=== PATIENT | female | born 1995 | race Caucasian/White ===

== ENCOUNTER 2024-07-20 16:13 | Emergency (ER) | payer OTHER ==
[~2024-07-20] VITALS: Ht 165.1 cm; Wt 66.7 kg
[2024-07-20 19:44] LABS: BILIRUBIN, URINE NEGATIVE (negative); BLOOD/HGB, URINE NEGATIVE (Negative); KETONE, URINE NEGATIVE (Negative); LEUK ESTERASE, URINE NEGATIVE (negative); NITRITE, URINE NEGATIVE (negative); PH, URINE 5.5 (5-7)
[2024-07-20] MEDS ORDERED: MAGNESIUM CITRATE 300 ML BTL PO ONE (21:00)
[2024-07-20 21:31] VITALS: BP 112/66
== END 2024-07-20 21:31 | disposition home or self-care (01) ==
LOC: ED 16:13
PROVIDERS: Family Medicine
DX: K59.00 Constipation, unspecified (principal)
CPT/HCPCS: 74018; 81003; 84703; 99284